=== PATIENT | female | born 1990 | race Two or more races ===

== ENCOUNTER 2018-04-25 05:36 | Emergency (ER) | payer OTHER ==
[2018-04-25 05:49] VITALS: BP 118/68; PULSE 97; TEMP 98.6; BMI 21.4
--- NOTE | 2018-04-25 06:08 | PDOC ---
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 Patient denies any visual changes, injury to the left eye or use of eye contacts. Patient states rubbed her eye yesterday evening and woke up this morning with redness. Timing/Duration: 24 hours Severity: mild Associated Symptoms: reports: denies symptoms Past History - Travel Traveled outside of the country in the last 30 days: No - Past Medical History Allergies/Adverse Reactions: Allergies Allergy/AdvReac Type Severity Reaction Status Date / Time No Known Allergies Allergy Verified 04/25/18 05:47 Home Medications: Ambulatory Orders NK [No Known Home Medication] 04/25/18 COPD: No - Suicide/Smoking/Psychosocial Hx Smoking History: Never smoked Hx Alcohol Use: Yes (SOCIAL) Drug/Substance Use Hx: No Patient Lives Alone: No Lives with/in: parents Review of Systems - Review of Systems Able to Perform ROS?: No Constitutional: No: Symptoms Reported HEENTM: Yes: Eye Pain, Tearing Integumentary: No: Symptoms Reported Neurological: No: Headache, Dizziness *Physical Exam - Vital Signs Last Vital Signs Temp Pulse Resp BP Pulse Ox 98.6 F 97 H 18 118/68 100 04/25/18 05:48 04/25/18 05:48 04/25/18 05:48 04/25/18 05:48 04/25/18 05:48 - Physical Exam General Appearance: Yes: Nourished, Appropriately Dressed. No: Apparent Distress HEENT: positive: EOMI, HELEN (left sclera erythematous with excessive tearing. conjunctiva pink. Lacrimal duct intact. 20/20 snellen OS) Integumentary: positive: Normal Color, Warm, Moist Neurologic: positive: Motor Strength 5/5 (ambulatory) Medical Decision Making - Medical Decision Making 04/25/18 06:05 Patient for evaluation of redness tearing and pain to the left eye for had plain , closed yesterday at work. Patient works in a [employer]. Patient concerning for corneal abrasions/corneal ulcer. The eye was stained using fluoresceined stain and tetracaine drops. Negative for corneal abrasion/ulcer. Patient will be ordered saline drops with recommendations to protective eyewear today and tomorrow as needed. *DC/Admit/Observation/Transfer Diagnosis at time of Disposition: Eye irritation - Discharge Dispostion Disposition: HOME Condition at time of disposition: Good - Referrals Referrals: Karen Talbert MD [Primary Care Provider] - - Patient Instructions Printed Discharge Instructions: DI for Eye Pain, DI for Chemical Eye Burn Additional Instructions: Please use saline drops as instructed for the next 2 days allowing it to stay well-hydrated and use protective eyewear as discussed for the next 2 days to allow area to be protected against dust and other debris. Please work in well ventilated areas and handle products with care. - Post Discharge Activity
== END 2018-04-25 06:11 | disposition home or self-care (01) ==
LOC: JER 05:36
DX: T65.891A Toxic effect of other specified substances, accidental (unintentional), initial encounter (principal); T26.82XA Corrosions of other specified parts of left eye and adnexa, initial encounter; Y93.89 Activity, other specified; Y92.69 Other specified industrial and construction area as the place of occurrence of the external cause; Y99.0 Civilian activity done for income or pay
CPT/HCPCS: 99281-25